=== PATIENT | female | born 1990 | race Caucasian/White ===

== ENCOUNTER 2017-02-03 00:01 | Inpatient (IN) | payer MEDICAID ==
--- OUTSIDE RECORDS SUMMARY | 2017-02-03 00:05 | XMS REPORT | Continuity of Care Document ---
:1990 Author Organization [facility] ([facility]) Address [address] [place] [address] Phone [phone] Care Team Providers Name Role Phone Yayo Rosas Primary Care Provider [phone] Source Comments This disclosure is being made pursuant to the Care Everywhere program, applicable federal and state laws, and may not contain all informaitonavailable regarding this patient.[facility] ([facility]) Active Allergies and Adverse Reactions Allergen Noted Date Severity Reactions Comments Other Agent Angioedema Pt. states dust mites and cow's milk causes swelling Vancomycin OTHER Red Man's: pre-med with benadryl and give over 3h Current Medications Prescription Sig. Disp. Refills Start Date End Date Status PNV62/FA/OM3/DHA/EPA Take 2 tablets Active /FISH OIL ( by mouth 2 GUMMY PO) times daily. levETIRAcetam 500 mg Dose increase 420 tablet 11 10/08/2016 Active tablet to 3,250 mg BID x 14d, then 3,500 mg BID ongoing clonazePAM 1 mg 1 tab by mouth 5 tablet 0 10/29/2016 Active disintegrating as needed for tablet seizures lacosamide (VIMPAT) Take 1 tablet 60 tablet 5 11/06/2016 Active 50 mg tablet (50 mg total) by mouth 2 times daily. Add to a 200 mg tabs to make 250 mg BID lacosamide (VIMPAT) Take 1 tablet 60 tablet 0 01/13/2017 Active 200 mg tablet (200 mg total) by mouth 2 times daily. lacosamide (VIMPAT) Take 1 tablet 60 tablet 5 07/02/2016 Discontinued 200 mg tablet (200 mg total) 7 by mouth 2 times daily. Active Problems Problem Noted Date Epilepsy affecting 07/02/2016 Therapeutic drug monitoring 08/16/2013 Last Assessment & Plan: 08/16/2013: Currently on Vimpat 200mg po BID and levetiracetam 2000mg po BID. 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 She has been on vimpat and keppra with nothing more than an occasional stutter that scares her as this is how last seizure started. There have been no starting events, no nocturnal loss of urine or tongue biting. She takes AEDs reliably ~ 10 AM and PM. She lives with her 4 yo and works at [employer]. No problems driving. Plan 1. Continue keppra and vimpat 2.She will need blood levels today and monthly during . I will give her requisition for blood draw locally. The blood needs to be drawn the same time of day each month. She is to call us after blood draw to make sure we receive result. 3. Follow up 3-4 months 4. We discussed registry at [phone] If you are , and take antiepileptic drugs (AEDs), please call toll free to register with the AED Registry. This registry is run by researchers at [facility] and [facility]. What is the purpose of the Registry? At present, we lack information about the relative safety of specific antiepileptic drugs (AEDs) during . Medications are generally avoided by women, but without medication, women wi th epilepsy are at risk of seizures. The Registry, as its name implies, registers or enrolls women (over the telephone) who are and taking AEDs to find the answers. As more women register and report the outcome of their , the researchers at [facility], [facility], will be able to identify the safest AEDs for seizures during and also determine how safe the newer AEDs are. Who should participate in the Registry? Women who are and taking AEDs for any reason. When should I call the Registry? As early in your (1st trimester) as possible. If you are already in your 2nd or 3rd trimester, however, you can still participate in the Registry. How do I register? By calling toll free . Questions the Registry coordinator will ask you, as an example, are your age, the date of your last menstrual period, and what AEDs and vitamins you are taking. Why should I participate in the Registry? Because we need you! To quote a woman who recently enrolled, "You can't just find someone on the street who is and see if they'd be willing to take an AED, so that when you decide to have a b [place] you'll know the drug is safe and won't cause defects." By enrolling, you will help women in the future have the best chance of a healthy and a healthy baby. Will enrolling in the Registry take a lot of time? Enrolling in the Registry takes very little time. Your initial phone call to the Registry will take less than 10 minutes. At seven months, there is another telephone interview, which will last approxi mately 5 minutes. After your baby is born, there will be a brief 5-minute follow-up interview. What about confidentiality? The researchers at [facility], [facility] [facility] [employer], understand how important confidentiality is to you. A coding system is used and , therefore, your name and address, for exampl e, are not part of the Registry database. No persons will be identified who have participated in the Registry. What can I do right now to increase my chances of having a healthy baby? Over 90 percent of women with epilepsy have healthy babies. The best thing you can do for your baby is to take good care of yourself - keep regular appointments with your doctor, take your seizure med ication, and get proper amounts of food, sleep, and exercise. If at all possible, before you become , begin taking folic acid (0.4 mg. per day) . Take vitamins with folic acid regularl y throughout your . Enrolling in the Registry will give you the satisfaction of knowing that you are helping women have an easier time in the future. When will we know more about and AEDs? Unfortunately, research can take many months - even years. The more women like you who choose to enroll in the Registry, the sooner we may have the answers. Antiepileptic Drug (AED) Registry If you have questions please call us: Department of Neurology Epilepsy Program(8:00 a.m. to 5:00 p.m. Wednesday-Wednesday) at [phone] After 5:00 p.m., weekends or holidays, call [phone] and ask for the Neurologist tongue and quarter stitcher. You may also use the 24 hour Toll-free number at . Elevated AFP on Integrated screening. Normal spine and ventral abdominal wall on 06/09. 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 Overview: - History of craniotomy for a subdural empyema in 08/2006, with reexploration in 09/2006, and left frontal cranioplasty in 02/2008. - Discussed limited data on her anti-epileptic medications in . - Per neurology recs, given severity of condition, would continue Keppra and Vimpat. - Recommend drawing Keppra level q4 weeks (last 08/23, pending). - Next follow up with Neurology on 11/15/12. - Growth scans q4 wks starting at 24 weeks, next at 35 weeks. - Per discussion with Neurology on 05/12/12 patient is okay for vaginal delivery. 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 Currently Estimated Date of Delivery Comments Yes Resolved Problems Problem Noted Date Resolved Date Unspecified intracranial hemorrhage 06/23/2007 06/09/2012 Unspecified sinusitis (chronic) 12/16/2006 05/13/2012 Aftercare following surgery of the nervous system, NEC 11/10/2006 05/12/2012 Benign neoplasm of cerebral meninges 11/10/2006 06/09/2012 Benign neoplasm of pituitary gland and craniopharyngeal duct 11/10/200606/09 (pouch) Neoplasm of unspecified nature of brain 11/10/2006 06/09/2012 Compression of brain 11/10/2006 05/13/2012 Other conditions of brain 11/10/2006 05/12/2012 Spinal stenosis in cervical region 11/10/2006 06/09/2012 Backache, unspecified 11/10/2006 05/12/2012 Disorder of bone and cartilage, unspecified 11/10/2006 06/09/2012 Spina bifida with hydrocephalus, unspecified region 11/10/2006 06/09/2012 Congenital hydrocephalus 11/10/2006 05/13/2012 Other specified congenital anomaly of spinal cord 11/10/2006 05/13/2012 Congenital anomaly of cerebrovascular system 11/10/2006 06/09/2012 Congenital musculoskeletal deformities of skull, face, 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 11/10/2006 05/12/2012 Abnormal involuntary movements(781.0) 11/10/2006 06/09/2012 Abnormality of gait 11/10/2006 06/09/2012 Nonspecific (abnormal) findings on radiological and other 11/10/20062011 examination of skull and head Muscle weakness (generalized) 10/04/2006 06/09/2012 Other alteration of consciousness 09/25/2006 05/12/2012 LORDOSIS NOS 04/28/2004 06/09/2012 Most Recent Encounters Date Type Specialty Providers Description 01/13/2017 Refill Neurology Zulay Dykes MD Dx: 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 (Primary Dx) 11/10/2016 Office Visit Neurology Rita Smith Subj: Appointment Zulay Dykes MD Rescheduled Immunizations Name Dates Previously Given Next Due Influenza, PF 07/07/2012 Influenza, high dose 08/12/2016 Tdap 07/07/2012 Social History Tobacco Use Types Packs/Day Years Used Date Never Smoker Smokeless Tobacco: Never Used Tobacco Cessation:Counseling Given: Yes Comments: Alcohol Use Drinks/Week oz/Week Comments Yes last drink Last Filed Vital Signs Vital Sign Reading Time Taken Blood Pressure 122/58 10/29/2016 1:48 PM EQUIPMENT MAINTENANCE ENGINEER Pulse 75 10/29/2016 1:48 PM EQUIPMENT MAINTENANCE ENGINEER Temperature 36.8 C (98.2 F) 08/23/2012 1:20 PM EQUIPMENT MAINTENANCE ENGINEER Respiratory Rate 16 08/04/2011 8:00 AM EQUIPMENT MAINTENANCE ENGINEER Height 1.575 m (5' 2") 10/29/2016 1:48 PM EQUIPMENT MAINTENANCE ENGINEER Weight 77.111 kg (170 lb) 10/29/2016 1:48 PM EQUIPMENT MAINTENANCE ENGINEER Body Mass Index 31.09 10/29/2016 1:48 PM EQUIPMENT MAINTENANCE ENGINEER Oxygen Saturation 99% 08/04/2011 8:00 AM EQUIPMENT MAINTENANCE ENGINEER Plan of Care Health Maintenance Due Date Last Done Comments Hepatitis B Vaccine (1 of 3 - Primary 1991 Series) HPV Vaccine (1 of 3 - Female 3 Dose 2002 Series) Cervical Cancer Screening 2009 Lipid Disorder Screening 2009 MMR Vaccine 2009 Td Vaccine 07/07/2022 07/07/2012 Tdap Vaccine Completed 07/07/2012 Influenza Vaccine: Seasonal Completed 08/12/2016, 07/07/2012 Results from Last 3 Months Not on file
[2017-02-03] MEDS ORDERED: OXYTOCIN/DEXTROSE 5%-WATER 30 UNITS/500 ML BAG IV ONE ×2 (00:07→12:01)
[2017-02-03] MEDS ORDERED: LIDOCAINE HCL 50 ML VIAL PERI PRN (00:07)
[2017-02-03] MEDS ORDERED: RINGERS SOLUTION,LACTATED 1,000 ML IV ONE (00:07)
[2017-02-03 00:33] LABS: Hematocrit 37.6 % (37.0-47.0); Hemoglobin 13.3 gm/dL (12.5-16.0); Mean Cell Volume 87.2 fl (78-100); Mean Corpuscular Hemoglobin 30.9 pg (27-31); Mean Corpuscular Hgb Conc 35.4 g/dl (32-36); Mean Platelet Volume 11.1 fl (6.0-9.5); Neutrophil # 7.4 K/mm3 (1.3-6.0); Neutrophil % 72.4 % (42-75.0); Platelet Count 165 K/mm3 (150-450); Red Blood Count 4.31 M/mm3 (4.2-5.4); Red Cell Distribution Width 13.2 % (11.5-14.0); White Blood Count 10.2 K/mm3 (4.0-10.5)
[2017-02-03 00:39] LABS: Albumin * 2.6 gm/dl (3.4-5.0); Anion Gap 17.4 mmol/L (6.8-13.8); BUN/Creatinine Ratio 11.1 (9.0-21.6); Bilirubin, Total 0.4 mg/dL (0.0-1.1); Ca. Corrected For Albumin 9.6 mg/dL (8.4-10.2); Calcium * 8.8 mg/dL (7.9-10.9); Carbon Dioxide 22.3 mmol/L (24-32.6); Potassium 3.7 mmol/L (3.4-4.6); Total Protein 6.8 gm/dL (6.2-8.2)
[2017-02-03] MEDS: DEXTROSE 5%-LACTATED RINGERS 1,000 ML IV PRN ×2 (02:47→10:23)
--- NOTE | 2017-02-03 07:48 | PN ---
Progess Note - Interim Narrative: 02/03/17 07:46 Patient rating her contractions as mild Vital signs stable. Pitocin at 9 mu/min. FHT: 120 baseline, reassuring Contractions q 1-4 min with occasional couplets Cervix: 2-3/75/-2, AROM-clear Impression: Intrauterine at 37 weeks induction of labor for gestational hypertension Plan: Continue present plan
[2017-02-03] MEDS ORDERED: BUTORPHANOL TARTRATE 2 MG/ML VIAL IV PRN (08:53)
[2017-02-03] MEDS ORDERED: levETIRAcetam 500 MG TABLET PO SCH ×2 (09:30→09:50)
[2017-02-03] MEDS ORDERED: LACOSAMIDE 200 MG TABLET PO SCH ×3 (09:30→10:30)
[2017-02-03] MEDS ORDERED: BUPIVACAINE HCL/0.9 % NACL/PF 250 ML EP PRN (09:45)
[2017-02-03] MEDS ORDERED: NALOXONE HCL 1 MG/1 ML SYRG IV PRN (09:45)
[2017-02-03] MEDS ORDERED: fentaNYL CITRATE/PF 50 MCG/ML AMPUL IT SCH (09:45)
[2017-02-03] MEDS ORDERED: ONDANSETRON HCL/PF 2 MG/ML VIAL IV PRN (09:45)
[2017-02-03] MEDS ORDERED: LACOSAMIDE 50 MG TABLET PO SCH ×2 (10:30→21:00)
[2017-02-03] MEDS ORDERED: Silver Nitrate Applicator 10 EACH PACKET TP ONE (10:51)
--- NOTE | 2017-02-03 12:00 | OR ---
Operative Report - Dictated Report Narrative: Spontaneous vaginal delivery of viable male at 1040 on 02/03/2017 with Apgars 9 and 9, weighing 2381 g and TRINITY position. Cord clamping delayed approximately 1 minute Placenta delivered complete, intact, with three vessel cord Estimated blood loss: less than 50 ml Lacerations: Clitoral abrasion with active bleeding controlled with silver nitrate.
[2017-02-03] MEDS ORDERED: HYDROCORTISONE 30 APPL TUBE TP PRN (12:01)
[2017-02-03] MEDS ORDERED: GLYCERIN/WITCH HAZEL LEAF 40 APPL BOX TP PRN (12:01)
[2017-02-03] MEDS ORDERED: oxyCODONE HCL/ACETAMINOPHEN 1 TAB TABLET PO PRN ×2 (12:01)
[2017-02-03] MEDS ORDERED: BISACODYL 10 MG SUPP.RECT RC PRN (12:01)
[2017-02-03] MEDS ORDERED: SENNOSIDES 8.6 MG TABLET PO PRN (12:01)
[2017-02-03] MEDS ORDERED: IBUPROFEN 800 MG TABLET PO PRN (12:01)
[2017-02-03] MEDS ORDERED: BENZOCAINE/MENTHOL 81 SPRAY CAN TP PRN (12:01)
--- NOTE | 2017-02-03 12:18 | OR ---
Anesthesia Procedure Note - Anesthesia Procedure Note Narrative: Vital Signs - Last Taken Temp 36.8 C 02/03/17 09:47 Pulse 85 02/03/17 09:47 Resp 16 02/03/17 09:47 BP 143/98 02/03/17 09:47 Pulse Ox 98 02/03/17 09:47 02/03/17 12:18 ANESTHESIA PROCEDURE NOTE Date of Procedure: 02/03/2017 Time of procedure: 1010. Performed by: Lamine Morris CRNA Conservation Science Teacher: None. Preprocedure diagnosis: Active labor. Post procedure diagnosis: Same. Procedure: Insertion of labor epidural. Indications: The patient is a 26 -year-old multigravida female in active labor requesting labor epidural for pain management. Findings: See below. Details of the procedure: The patient was placed in a sitting position. Back was prepped with DuraPrep. Patient was then draped in a sterile fashion. Lidocaine 1% was infiltrated to the skin and subcutaneous tissues at the level of the L3 4 interspace. The epidural space was identified using a 18-gauge Tuohy needle with [id number]-ohhjycbcma technique. 20 mcg fentanyl was given intrathecally using a 27 ga. spinal needle. Epidural catheter was inserted without difficulty. Negative test dose was elicited using 5 mL of 1.5% preservative-free lidocaine plus epinephrine 1 200,000. The epidural catheter was then taped and secured in place. EBL: Minimal. Fluids: N/A. Specimen: N/A. Post procedure condition: The patient tolerated the procedure well. No complications were noted. Thank you for this consultation. [place] CRNA
[2017-02-03] MEDS ORDERED: MISOPROSTOL 200 MCG TABLET RC SCH (12:45)
[2017-02-03] MEDS ORDERED: LACOSAMIDE 200 MG TABLET PO ONE (21:41)
[2017-02-03] MEDS: DOCUSATE SODIUM 100 MG CAPSULE PO SCH (21:51)
[2017-02-03] MEDS: levETIRAcetam 500 MG TABLET PO SCH (21:52)
[2017-02-03] MEDS: LACOSAMIDE 200 MG TABLET PO SCH (21:53)
[2017-02-04] MEDS: PRENATAL VIT#96/FERROUS FUM/FA 1 TAB TABLET PO SCH (08:28)
[2017-02-04] MEDS: LACOSAMIDE 200 MG TABLET PO SCH ×2 (08:28→21:29)
[2017-02-04] MEDS: DOCUSATE SODIUM 100 MG CAPSULE PO SCH ×2 (08:28→21:28)
[2017-02-04] MEDS: levETIRAcetam 500 MG TABLET PO SCH ×2 (08:29→21:28)
--- NOTE | 2017-02-04 08:54 | PN ---
Subjective - Date and Time Seen Date: 02/04/17 Time: 08:52 Objective - Vitals Vitals: Last Vital Signs Temp 36.4 C L 02/04/17 04:00 Pulse 76 02/04/17 04:00 Resp 18 02/04/17 04:00 BP 139/90 02/04/17 04:00 Pulse Ox 98 02/04/17 04:00 Patient denies complaints. No headache, visual changes, or epigastric pain. Lochia wnl Abdomen - soft, nontender Uterus - firm, at umbilicus - 1 No calf tenderness, DTR - 2/4, no clonus Impression: day #1 - s/p spontaneous vaginal delivery. Gestational hypertension - still present but blood pressures not in severe range Plan: Continue routine care. Continue close monitoring of blood pressure and for signs/symptoms of preeclampsia
[2017-02-05] MEDS ORDERED: ACETAMINOPHEN 325 MG TABLET PO PRN (08:10)
--- NOTE | 2017-02-05 08:10 | PN ---
Subjective - Date and Time Seen Date: 02/05/17 Time: 08:07 Objective - Vitals Vitals: Last Vital Signs Temp 36.6 C 02/05/17 02:54 Pulse 92 02/05/17 02:54 Resp 16 02/05/17 02:54 BP 144/91 02/05/17 02:54 Pulse Ox 100 02/05/17 02:54 Patient denies complaints. Lochia wnl Abdomen - soft, nontender Uterus - firm, at umbilicus - 2 No calf tenderness Impression: day #2 - s/p spontaneous vaginal delivery. Gestational hypertension-persistent but stable Plan: Routine discharge instructions. Preeclampsia precautions. Follow-up in the office in 1 week for blood pressure check.
[2017-02-05] MEDS: LACOSAMIDE 200 MG TABLET PO SCH (08:20)
[2017-02-05] MEDS: PRENATAL VIT#96/FERROUS FUM/FA 1 TAB TABLET PO SCH (08:20)
[2017-02-05] MEDS: DOCUSATE SODIUM 100 MG CAPSULE PO SCH (08:20)
[2017-02-05] MEDS: levETIRAcetam 500 MG TABLET PO SCH (08:24)
[2017-02-05 08:54] VITALS: BP 145/89
== END 2017-02-05 12:45 | disposition home or self-care (01) | DRG 775 ==
LOC: OB 00:01
PROVIDERS: ADMIT Obstetrics & Gynecology; ATTEND Obstetrics & Gynecology
PROC: 10E0XZZ Delivery of Products of Conception, External Approach (ICD-10-PCS; principal; 2017-02-03)
PROC: 10907ZC Drainage of Amniotic Fluid, Therapeutic from Products of Conception, Via Natural or Artificial Opening (ICD-10-PCS; 2017-02-03)
PROC: 3E033VJ Introduction of Other Hormone into Peripheral Vein, Percutaneous Approach (ICD-10-PCS; 2017-02-03)
PROC: 4A1HXCZ Monitoring of Products of Conception, Cardiac Rate, External Approach (ICD-10-PCS; 2017-02-03)
PROC: 3E0S3CZ (ICD-10-PCS; 2017-02-03)
DX: O13.4 Gestational [pregnancy-induced] hypertension without significant proteinuria, complicating childbirth (principal); O71.89 Other specified obstetric trauma; G40.909 Epilepsy, unspecified, not intractable, without status epilepticus; Z3A.37 37 weeks gestation of pregnancy; Z37.0 Single live birth